=== PATIENT | female | born 1985 | race Two or more races ===

== ENCOUNTER 2025-02-26 07:39 | Outpatient (CLI) | payer OTHER | END 2025-02-26 07:40 | disposition home or self-care (01) | LOC: ULT 07:39 → EEVIPCON 07:39 → ULT 07:40 | PROVIDERS: ATTEND Family Medicine | DX: K43.9 Ventral hernia without obstruction or gangrene (principal); R10.9 Unspecified abdominal pain; K76.0 Fatty (change of) liver, not elsewhere classified; K80.20 Calculus of gallbladder without cholecystitis without obstruction | CPT/HCPCS: 76700 ==